=== PATIENT | female | born 1975 | race Caucasian/White ===

== ENCOUNTER → 2020-02-25 | Outpatient (CLI) | payer BC | LOC: RAD 13:57 | DX: M43.17 Spondylolisthesis, lumbosacral region (principal) ==

== ENCOUNTER → 2020-03-11 | Outpatient (CLI) | payer BC ==
[~2020-03-11] MED LIST: CELEXA 20 MG TA20 MG PO; HYDROCHLOROTH12.5 M2 PO; NP THYROID60 MG PO; PROTONIX40 M2 PO; TEMAZEPAM15 MG PO; VYVANSE60 MG PO
== END ==
LOC: LAB 10:20
DX: Z01.812 Encounter for preprocedural laboratory examination (principal); Z20.828 Contact with and (suspected) exposure to other viral communicable diseases

== ENCOUNTER 2020-03-16 10:05 | Day surgery (SDC) | payer BC ==
--- NOTE | 2020-03-11 13:29 | EKG ---
[facility] [place] [address] ELECTROCARDIOGRAM REPORT Name: CELSO ORTIZ Room #: PRE [facility] [place] [place] M.R.#: [id number] Admission: Attend Phys: Brian Salter MD Discharge: Date of : 77 Report #: [id number] THIS REPORT FOR: cc: MADDISON CANO - Family physician unknown Steffen Boland MD ~ THIS REPORT FOR: //name// [facility] Test Date: 2020-03-11 Test Time: 13:25:25 Pat Name: CELSO ORTIZ Department: Room: Gender: F Trash Collector: Oneil MAURICIO : 1975 Requested By: Brian Salter Order Number: [id number] MD: Steffen Boland Measurements Intervals Prospect Rate: 78 P: 31 AK: 124 QRS: -19 QRSD: 93 T: 27 QT: 373 QTc: 425 Interpretive Statements Sinus rhythm Borderline left axis deviation No previous ECG available for comparison Electronically Signed On 03-11-2020 13:29:35 CDT by Steffen Boland [email or web address] <ELECTRONICALLY SIGNED> By: Steffen Boland MD 03/11/20 1329 D: [id number] 24 Steffen Boland MD /YUSRA
[2020-03-11 13:55] LABS: ABSOLUTE NEUTROPHILS 4.5 thou/uL (1.4-8.2); BASOPHILS 0.9 % (0.0-2.0); EOSINOPHILS 1.3 % (0.0-3.0); HEMATOCRIT 38.2 % (37.0-47.0); HEMOGLOBIN 13.2 gm/dL (12.0-15.0); LYMPHOCYTES 21.2 % (24.0-44.0); MCH 30.1 pg (26.0-34.0); MCHC 34.5 g/dL (28.0-37.0); MCV 87.4 fL (80.0-100.0); MONOCYTES 6.5 % (1.0-8.0); PLATELET COUNT 304 thou/uL (150-400); POLYS 70.1 % (36.0-66.0); RBC 4.37 mil/uL (4.20-5.00); RDW 15.6 % (10.5-14.5); WBC 6.4 thou/uL (4.0-11.0)
[2020-03-11 14:05] LABS: URINE BILIRUBIN NEGATIVE (Negative); URINE BLOOD NEGATIVE (Negative); URINE CLARITY CLEAR; URINE COLOR YELLOW; URINE GLUCOSE-RANDOM* NEGATIVE (Negative); URINE KETONES NEGATIVE (Negative); URINE LEUKOCYTES-REFLEX NEGATIVE (Negative); URINE NITRITE-REFLEX NEGATIVE (Negative); URINE PROTEIN (DIPSTICK) NEGATIVE (Negative); URINE UROBILINOGEN 0.2 E.U./dl (0.2-1.0)
[2020-03-11 14:10] LABS: APTT 25.3 Seconds (24.5-32.8); PROTIME 9.6 Seconds (9.3-11.4)
[2020-03-11 14:18] LABS: ALBUMIN 3.8 g/dL (3.4-5.0); CALCIUM 9.1 mg/dL (8.5-10.1); POTASSIUM 4.2 mmol/L (3.5-5.1); TOTAL BILIRUBIN 0.4 mg/dL (0.2-1.0); TOTAL PROTEIN 7.2 g/dL (6.4-8.2)
[~2020-03-16] VITALS: Ht 165.1 cm; Wt 91.6 kg
[2020-03-16 10:56] VITALS: BP 110/59
[2020-03-16 17:05] VITALS: BP 96/53
[2020-03-16 17:28] VITALS: BP 113/69
--- NOTE | 2020-03-16 17:31 | NUR ---
PATIENT ADMITTED FOM OR WITH LUMBAR DISCECTOMY, DRY GUAZE AND TEGADERM TO LOW-BACK. PATIENT ALERT AND ORIENTED X 4. C/O MILD PAIN 2/10, PATIENT REFUSES PAIN MEDS AT THIS TIME. PATIENT HAS LEFT HAND IV IN PLACE, LUCÍA/ASSURANCE SENIOR MANAGER INSURANCE WILL GIVE BOLUS OF NS DUE TO B/P SLIGHTLY LOW. PATIENT HAS THIGH HIGH [place]AG[place] HOSE, SCD'S IN PLACE. NO C/O NAUSEA, CLEAR LIQUID DIET STARTED. AT BEDSIDE. ADMISION COMPLETED, REPORT WILL BE GIVEN TO ROBINA.
[2020-03-16 18:00] VITALS: BP 117/68
--- NOTE | 2020-03-17 02:28 | NUR ---
PT ASSESSED AT START OF SHIFT A&OX4. PO PAIN MED GIVEN. IV INTACT AND BOLUS FLUID INFUSING. PT UP WITH SBA TO THE BATHROOM. DRESSING C/D/I. SCD'S AND TEDHOSE ON BLE. CALL LIGHT AT REACH. NEW IV INSERTED IN LFT FA 22G DUE TO TENDERNESS FROM OLD IV. FALL PREC IN PLACE, CALL LIGHT IN REACH WILL CONT WITH POC TILL EOS.
[2020-03-17 04:14] VITALS: BP 105/51
[2020-03-17 05:51] LABS: ABSOLUTE NEUTROPHILS 7.3 thou/uL (1.4-8.2); BASOPHILS 0.1 % (0.0-2.0); HEMATOCRIT 31.9 % (37.0-47.0); HEMOGLOBIN 10.7 gm/dL (12.0-15.0); LYMPHOCYTES 8.8 % (24.0-44.0); MCH 29.5 pg (26.0-34.0); MCHC 33.5 g/dL (28.0-37.0); MCV 87.9 fL (80.0-100.0); MONOCYTES 3.9 % (1.0-8.0); PLATELET COUNT 233 thou/uL (150-400); POLYS 87.2 % (36.0-66.0); RBC 3.63 mil/uL (4.20-5.00); RDW 15.2 % (10.5-14.5); WBC 8.4 thou/uL (4.0-11.0)
[2020-03-17 06:10] LABS: CALCIUM 7.7 mg/dL (8.5-10.1); MAGNESIUM 2.1 mg/dL (1.8-2.4); POTASSIUM 3.9 mmol/L (3.5-5.1)
[2020-03-17 08:00] VITALS: BP 105/60
--- NOTE | 2020-03-17 10:54 | NUR ---
PT TO DISCHARGE TO HOME TODAY. WILL GET WALKER TO TAKE HOME. PT ALERT XS 4. UP TO BATHROOM CONT OF B&B, PT GIVEN PRN PAIN MED WILL DO THERAPY. PT PLEASANT AND COOPERATIVE WITH CARE.
[2020-03-17 11:11] VITALS: BP 105/60
[2020-03-17] MEDS ORDERED: PERCOCET 10-321 EACH PO (14:24)
[2020-03-17] MEDS ORDERED: TYLENOL325 MG PO (14:25)
[2020-03-17] MEDS ORDERED: MIRALAX17 GM PO (14:25)
[2020-03-17] MEDS ORDERED: ROBAXIN 750 MG750 MG PO (14:25)
[2020-03-17] MEDS ORDERED: MILK OF MA2400 MG/11 PO (14:25)
[2020-03-17 14:45] VITALS: BP 105/60
[2020-03-17 15:31] VITALS: BP 105/60
--- NOTE | 2020-03-18 14:56 | O ---
[facility] [place] [address] OPERATIVE REPORT Name: CELSO ORTIZ Room #: DEP [facility].#: [id number] Admission: 03/16/20 Attend Phys: Brian Salter MD Discharge: 03/17/20 Date of : 77 Report #: [id number] THIS REPORT FOR: cc: MADDISON CANO - Family physician unknown Brian Salter MD ~ CC: CLAYTON unknown Brian ACNO DATE OF SERVICE: 03/16/2020 PREOPERATIVE DIAGNOSES: Left L4-L5 herniated nucleus pulposus, left L5 radiculopathy, extruded disk, almost spanning the entire left side of the L5 vertebral body, requiring laminectomy. POSTOPERATIVE DIAGNOSES: Left L4-L5 herniated nucleus pulposus, left L5 radiculopathy extruded disk, almost spanning the entire left side of the L5 vertebral body, requiring laminectomy. PROCEDURE: L5 laminectomy with partial facetectomy and neural foraminotomy, left L4 laminectomy with partial facetectomy and neural foraminotomy and then L4-L5 diskectomy with retrieval of multiple free fragments, dissecting down the posterior aspect of the L5 vertebral body inferior to the neural foramen. SURGEON: Damian Salter. JAVA J2EE APPLICATION DEVELOPER SURGEON: Lety Obrien PA-C. ANESTHESIA: General via endotracheal tube. INDICATIONS: The patient has had anesthesia of the L5 nerve root. The patient has started to have a little bit of back pain. The patient has not noted any return of her sensation to the left leg. The patient has proved refractory to multiple modality conservative management. She is requesting we proceed with operative intervention due to the severity of the mass effect and the size of the multiple fragments extruded from the L4-L5 disk space. The patient understood the risks of surgery to be , DVT, pulmonary embolism, paraplegia, loss of bowel and bladder function, loss of sexual function, the possibility of bleeding, bleeding requiring transfusion, transfusion attendant risks of AIDS and hepatitis, infection, instability, the need for revision, prolonged hospital stay, dural leak, spinal headache, infection, recurrence and again she requests we proceed. DESCRIPTION OF PROCEDURE: The patient was brought to the operating room and administered general anesthesia via endotracheal tube. Lower extremities were [facility] [address] [place] [address] OPERATIVE REPORT Name: CELSO ORTIZ Room #: [facility] M.R.#: [id number] Admission: 03/16/20 Attend Phys: Brian Salter MD Discharge: 03/17/20 Date of : 77 Report #: [id number] treated with ANGA hose and intermittent compression stockings. She was positioned on the [place] radiolucent table in the prone position with all bony prominences padded appropriately. Care was taken to ensure there was no abduction of the shoulders beyond 90 degrees. There is no flexion of the arms at the elbows beyond 90 degrees. There was no undue pressure on the cubital or carpal canals. The area of the anterior superior iliac spine was well padded to protect the lateral femoral cutaneous nerve. Hips and knees were well padded and there was no pressure on the dorsum of the feet. The patient's low back was defatted with alcohol, visualized under fluoroscopy and the pedicles of L4 and L5 were marked on the patient's back for surgical reference. We then sterilely prepped and draped and infiltrated the skin with 0.5% Marcaine, 1:200,000 epinephrine. Sharp dissection was then continued down through the skin and subcutaneous tissues at the level of the deep fascia, which was a considerable depth. We then exposed the interlaminar space at L4-L5 and found it to be almost more like a stenosis. The inner laminar space was extraordinarily small, overgrown by the joint. So, the L4 lamina was thinned on the left with a high speed drill to the anterior cortex as was the L5 lamina, almost to the end of the lamina. We then entered the canal centrally and then was able to find the cephalad extension of the ligament, which was resected. We then continued the dissection lateralward, performing true partial facetectomy and neural foraminotomies to allow mobilization of the nerve root, which was severely pinned over about 1/2 an inch area from the L4-L5 disk to the inferior aspect of the L5 vertebrae. We then continued the laminectomy of L5 and performed a laminectomy with partial facetectomy and neural foraminotomy of L5. With this complete, we were able to note the nerve root passing along the medial aspect of the pedicle of L5 and it was dissected, allowing us exposure of disk material that had extruded from the L4-L5 disk about 1/2-3/4 of an inch down the posterior aspect of the L5 vertebral body. The nerve root was mobilized and the disk material out was continued to be dissected and removed with pituitary until we had multiple fragments completely decompressing the lateral recess and the entrance zone to the neural foramen of the L5 nerve root. We actually pulled out disk far below the neural foramen on the left, the need for the true laminectomies, partial facetectomies and neural foraminotomies. We then copiously irrigated after we palpated the neural foramen at both levels, 4 and 5 and then we obtained meticulous hemostasis, placed pledgets thrombin-soaked Gelfoam over the spinal canal and then closed the deep fascial layer with 0 Ethibond in [id number] interrupted fashion, deep subQ with 0 Vicryl, superficial subQ with 2-0 Vicryl, skin with subcuticular 3-0, dressed with benzoin, Steri-Strips, Xeroform, sterile dressing, sponges and a bioclusive. The patient tolerated the procedure well, no technical misadventures, being transported to recovery room for closer neurovascular observation. Discharge to the floor when stable. Final blood loss was about 20 mL. There was no specimen. No complications and the patient was physiologically stable [facility] [address] [place] [address] OPERATIVE REPORT Name: CELSO ORTIZ Room #: DEP [facility].#: [id number] Admission: 03/16/20 Attend Phys: Brian Salter MD Discharge: 03/17/20 Date of : 77 Report #: [id number] throughout and the level was proven not only by the pathology, but by intraoperative fluoroscopic localization. <ELECTRONICALLY SIGNED> By: Brian Salter MD 03/18/20 1456 1438 1459 Brian Salter MD /nt
== END 2020-03-17 15:45 | disposition home or self-care (01) ==
LOC: TBA 10:05 → OR 10:05 → TBA 10:06 → OR 11:00 → 4S 16:24 → OR 03-17 15:45
PROVIDERS: Nurse Practitioner
DX: M51.16 Intervertebral disc disorders with radiculopathy, lumbar region (principal); I10 Essential (primary) hypertension; E03.9 Hypothyroidism, unspecified; K21.9 Gastro-esophageal reflux disease without esophagitis; F32.9 Major depressive disorder, single episode, unspecified; Z98.890 Other specified postprocedural states; Z79.899 Other long term (current) drug therapy; Z88.8 Allergy status to other drugs, medicaments and biological substances; Z91.040 Latex allergy status
CPT/HCPCS: 50010; 50101; 50402; 50850; 51878; 56524; 56526; 56529; 62110; 62900; 70005